=== PATIENT | male | born 1970 | race Asian ===

== ENCOUNTER 2018-03-05 13:30 | Emergency (ER) | payer MEDICAID, MEDICARE ==
[~2018-03-05] VITALS: Ht 190.5 cm; Wt 86.5 kg
[~2018-03-05 13:30] MED LIST: ALBUTEROL INHALER; LORA-446
[2018-03-05 13:32] VITALS: BP 113/79
[2018-03-05] MEDS ORDERED: IBUPROFEN 200 MG TABLET PO ONE (14:00)
[2018-03-05] MEDS ORDERED: IBUPROFEN 200 MG TABLET ONE (14:01)
== END 2018-03-05 15:01 | disposition home or self-care (01) ==
LOC: ED 14:56
DX: S62.525A Nondisplaced fracture of distal phalanx of left thumb, initial encounter for closed fracture (principal); F17.210 Nicotine dependence, cigarettes, uncomplicated; Y04.2XXA Assault by strike against or bumped into by another person, initial encounter; Y93.89 Activity, other specified; Y92.410 Unspecified street and highway as the place of occurrence of the external cause; Y99.8 Other external cause status
CPT/HCPCS: 99284